=== PATIENT | male | born 1940 | race African-American/Black ===

== ENCOUNTER 2017-09-07 11:19 | Emergency (ER) | payer MEDICARE ==
[~2017-09-07] VITALS: Ht 185.4 cm; Wt 108.0 kg
[~2017-09-07 11:19] MED LIST: AMIODARONE400 MG PO; AMLODIPINE5 MG PO; AMOX/K CLAV875 M1 PO; AMOXICILLIN500 MG OR; AUGMENTIN500TAB PO; AUGMENTIN875TAB OR; CORTISPORIN OTI10 ML AD; DICLOFENAC SODI75 M1 PO; EC-NAPROSYN375 MG OR; EQ PAIN RELIEV500 MG PO; FLUARIX QUADRIV1 IN1 IM; HYDRALAZINE50 MG OR; HYDRALAZINE50 MG PO; K-DUR/KLOR-CON10 MEQ PO; KENALOG-4040 MG/ML IA; LASIX 40 MG TAB40 MG PO; LISINOPRIL10 MG OR; LISINOPRIL10 MG PO; MEDDOSEPAK PO; MELOXICAM15 MG PO; METOPROL TAR100 MG PO; METOPROLOL TART50 MG PO; METOPROLOL100 M1 OR; MILTAB #1 PO; MIRALAX3350 N1 PO; NABUMETONE500 MG; NABUMETONE500 MG PO; NITRO-DUR0.4 MG/HR TD; PLETAL100 MG PO; PLETAL50 MG PO; PNEUMOVAX 23 IM; PRAVASTATIN20 MG OR; PRAVASTATIN20 MG PO; ROCEPHIN 1 GM1 GM IM; RYBIX ODT50 MG PO; TENORMIN25 MG PO; TORADOL30 MG/VIAL IJ; TRAMADOL HCL50 MG PO; VERAPAMIL OR; VERAPAMIL PO; ZITHROMAX250 MG PO; ZYRTEC10 MG PO
[2017-09-07] MEDS ORDERED: HYDRALAZINE25 MG PO (11:36)
[2017-09-07] MEDS ORDERED: LISINOPRIL20 MG PO (11:36)
[2017-09-07] MEDS ORDERED: MAXZIDE-2537.5 MG/TA PO (11:37)
[2017-09-07 12:21] LABS: HEMATOCRIT 43.1 % (39.0-50.0); HEMOGLOBIN 14.1 g/dl (14.0-18.0); IMMATURE GRANULOCYTES 0.4 % (0.0-1.0); MEAN CELL VOLUME 94.5 fL CALC (80.0-100.0); MEAN CORPUSCULAR HGB 30.9 pG CALC (26.0-32.0); MEAN CORPUSCULAR HGB CONC 32.7 g/L CALC (32.0-36.0); NEUT# 5.73 thou/uL (1.82-7.42); RED BLOOD COUNT 4.56 mill/uL (4.70-6.10)
[2017-09-07 12:37] LABS: ALBUMIN 4.3 g/dL (3.2-5.0); ALKALINE PHOSPHATASE 56 u/l (38-126); ANION GAP 14 (6-22 (CALC)); BILIRUBIN, TOTAL 0.6 mg/dL (0.0-1.4); BUN 26 mg/dL (8-23); BUN/CREATININE RATIO 23 (12-20 (CALC)); CALCIUM 9.6 mg/dL (8.4-10.2); CARBON DIOXIDE 28 mmol/l (22-30); CHLORIDE 104 mmol/l (95-108); CREATININE 1.1 mg/dL (0.7-1.3); GFR > 60 ML/MIN (>=60 (CALC)); GFR FOR AFR.AMER. > 60 ML/MIN (>=60 (CALC)); GLUCOSE 104 mg/dL (82-115); POTASSIUM 4.9 mmol/l (3.5-5.1); SGOT/AST 19 u/l (19-48); SGPT/ALT 44 u/l (11-66); SODIUM 142 mmol/l (137-146); TOTAL PROTEIN 7.5 g/dL (6.3-8.2)
[2017-09-07] MEDS ORDERED: MEDDOSEPAK PO (15:25)
[2017-09-07 15:32] VITALS: BP 10/86
== END 2017-09-07 15:41 | disposition home or self-care (01) ==
LOC: ED 11:19
PROVIDERS: Emergency Medicine
DX: J40 Bronchitis, not specified as acute or chronic (principal); M46.92 Unspecified inflammatory spondylopathy, cervical region; R05 Cough; I10 Essential (primary) hypertension

== ENCOUNTER 2017-10-27 11:52 | Emergency (ER) | payer MEDICARE ==
[~2017-10-27] VITALS: Ht 185.4 cm; Wt 110.0 kg
[~2017-10-27 11:52] MED LIST changes: +HYDRALAZINE25 MG PO; +LISINOPRIL20 MG PO; +MAXZIDE-2537.5 MG/TA PO
[2017-10-27] MEDS ORDERED: TRAMADOL HYDROC50 MG PO (13:28)
[2017-10-27 13:42] LABS: URINE BILIRUBIN - DIPSTICK NEGATIVE (NEGATIVE); URINE BLOOD DIPSTICK NEGATIVE (NEGATIVE); URINE COLOR YELLOW; URINE GLUCOSE - DIPSTICK NEGATIVE (NEGATIVE); URINE KETONE NEGATIVE (NEGATIVE); URINE LEUK ESTERASE NEGATIVE (NEGATIVE); URINE NITRITE - DIPSTICK NEGATIVE (Negative); URINE PH 5.5 (4.5-8.0); URINE PROTEIN - DIPSTICK NEGATIVE (NEG-TRACE); URINE SPECIFIC GRAVITY 1.015; URINE UROBILINOGEN - DIPSTICK 0.2 E.U./dL (0.2)
[2017-10-27 13:43] LABS: HEMATOCRIT 35.2 % (39.0-50.0); HEMOGLOBIN 11.4 g/dl (14.0-18.0); IMMATURE GRANULOCYTES 0.3 % (0.0-1.0); MEAN CELL VOLUME 96.7 fL CALC (80.0-100.0); MEAN CORPUSCULAR HGB 31.3 pG CALC (26.0-32.0); MEAN CORPUSCULAR HGB CONC 32.4 g/L CALC (32.0-36.0); NEUT# 3.79 thou/uL (1.82-7.42); RED BLOOD COUNT 3.64 mill/uL (4.70-6.10); RED CELL DISTRI WIDTH 13.9 % (11.5-15.5)
[2017-10-27 14:00] LABS: URINE CLARITY CLEAR
[2017-10-27 14:02] LABS: ALBUMIN 4.5 g/dL (3.2-5.0); ALKALINE PHOSPHATASE 53 u/l (38-126); AMYLASE 107 u/l (30-110); ANION GAP 16 (6-22 (CALC)); BILIRUBIN, TOTAL 0.5 mg/dL (0.0-1.4); BUN 39 mg/dL (8-23); BUN/CREATININE RATIO 17 (12-20 (CALC)); CALCIUM 9.4 mg/dL (8.4-10.2); CARBON DIOXIDE 26 mmol/l (22-30); CHLORIDE 109 mmol/l (95-108); CREATININE 2.3 mg/dL (0.7-1.3); GFR 28 ML/MIN (>=60 (CALC)); GFR FOR AFR.AMER. 34 ML/MIN (>=60 (CALC)); GLUCOSE 112 mg/dL (82-115); LIPASE 92 u/l (23-300); POTASSIUM 4.9 mmol/l (3.5-5.1); SGOT/AST 22 u/l (19-48); SGPT/ALT 23 u/l (11-66); SODIUM 146 mmol/l (137-146); TOTAL PROTEIN 7.6 g/dL (6.3-8.2)
[2017-10-27 14:13] LABS: MYOGLOBIN 157 ng/mL (0 - 121)
[2017-10-27 14:46] VITALS: BP 130/63
== END 2017-10-27 15:05 | disposition home or self-care (01) ==
LOC: ED 11:52
PROVIDERS: Emergency Medicine
DX: R22.43 Localized swelling, mass and lump, lower limb, bilateral (principal); I10 Essential (primary) hypertension; Z86.73 Personal history of transient ischemic attack (TIA), and cerebral infarction without residual deficits; Z85.46 Personal history of malignant neoplasm of prostate; M19.90 Unspecified osteoarthritis, unspecified site; E78.00 Pure hypercholesterolemia, unspecified

== ENCOUNTER 2017-11-13 13:09 | Emergency (ER) | payer MEDICARE ==
[~2017-11-13] VITALS: Ht 185.4 cm; Wt 100.0 kg
[~2017-11-13 13:09] MED LIST changes: +TRAMADOL HYDROC50 MG PO
[2017-11-13] MEDS ORDERED: ARTHRITIS PAIN650 MG PO (13:49)
[2017-11-13] MEDS ORDERED: FINASTERIDE5 MG PO (13:50)
[2017-11-13] MEDS ORDERED: DUONEB IN (13:51)
[2017-11-13] MEDS ORDERED: MAXIDE1 COMBO PO (13:52)
[2017-11-13] MEDS ORDERED: TRAMADOL HCL50 MG PO (13:54)
[2017-11-13 13:57] LABS: HEMATOCRIT 32.2 % (39.0-50.0); HEMOGLOBIN 10.6 g/dl (14.0-18.0); IMMATURE GRANULOCYTES 0.5 % (0.0-1.0); MEAN CORPUSCULAR HGB 31.9 pG CALC (26.0-32.0); MEAN CORPUSCULAR HGB CONC 32.9 g/L CALC (32.0-36.0); NEUT# 7.35 thou/uL (1.82-7.42); RED BLOOD COUNT 3.32 mill/uL (4.70-6.10)
[2017-11-13 14:07] LABS: ALKALINE PHOSPHATASE 50 u/l (38-126); ANION GAP 17 (6-22 (CALC)); BILIRUBIN, TOTAL 0.4 mg/dL (0.0-1.4); BUN 33 mg/dL (8-23); BUN/CREATININE RATIO 26 (12-20 (CALC)); CALCIUM 9.8 mg/dL (8.4-10.2); CARBON DIOXIDE 23 mmol/l (22-30); CHLORIDE 109 mmol/l (95-108); CREATININE 1.3 mg/dL (0.7-1.3); GFR 54 ML/MIN (>=60 (CALC)); GFR FOR AFR.AMER. > 60 ML/MIN (>=60 (CALC)); GLUCOSE 98 mg/dL (82-115); MAGNESIUM 2.1 mg/dL (1.6-2.3); POTASSIUM 4.2 mmol/l (3.5-5.1); SGOT/AST 76 u/l (19-48); SGPT/ALT 45 u/l (11-66); SODIUM 144 mmol/l (137-146); TOTAL PROTEIN 6.9 g/dL (6.3-8.2)
[2017-11-13] MEDS ORDERED: POTASSIUM CHLO20 ME1 PO (15:56)
[2017-11-13] MEDS ORDERED: LASIX20 MG PO (15:56)
[2017-11-13 16:06] VITALS: BP 130/70
== END 2017-11-13 16:23 | disposition home or self-care (01) ==
LOC: ED 13:09
PROVIDERS: Emergency Medicine
DX: R60.0 Localized edema (principal); R06.02 Shortness of breath; R53.1 Weakness

== ENCOUNTER 2017-11-15 15:51 | Emergency (ER) | payer MEDICARE ==
[~2017-11-15] VITALS: Ht 185.4 cm; Wt 136.3 kg
[~2017-11-15 15:51] MED LIST changes: +ARTHRITIS PAIN650 MG PO; +DUONEB IN; +FINASTERIDE5 MG PO; +LASIX20 MG PO; +MAXIDE1 COMBO PO; +POTASSIUM CHLO20 ME1 PO
[2017-11-15 18:53] LABS: HEMATOCRIT 30.5 % (39.0-50.0); IMMATURE GRANULOCYTES 0.3 % (0.0-1.0); MEAN CELL VOLUME 96.5 fL CALC (80.0-100.0); MEAN CORPUSCULAR HGB 31.6 pG CALC (26.0-32.0); MEAN CORPUSCULAR HGB CONC 32.8 g/L CALC (32.0-36.0); NEUT# 8.49 thou/uL (1.82-7.42); RED BLOOD COUNT 3.16 mill/uL (4.70-6.10); RED CELL DISTRI WIDTH 13.8 % (11.5-15.5)
[2017-11-15 19:06] LABS: PROTHROMBIN TIME 10.8 SECONDS (9.0-12.5)
[2017-11-15 19:08] LABS: ALKALINE PHOSPHATASE 47 u/l (38-126); ANION GAP 19 (6-22 (CALC)); BILIRUBIN, TOTAL 0.6 mg/dL (0.0-1.4); BUN 41 mg/dL (8-23); BUN/CREATININE RATIO 32 (12-20 (CALC)); CALCIUM 9.7 mg/dL (8.4-10.2); CARBON DIOXIDE 19 mmol/l (22-30); CHLORIDE 107 mmol/l (95-108); CREATININE 1.3 mg/dL (0.7-1.3); GFR 54 ML/MIN (>=60 (CALC)); GFR FOR AFR.AMER. > 60 ML/MIN (>=60 (CALC)); GLUCOSE 106 mg/dL (82-115); POTASSIUM 4.7 mmol/l (3.5-5.1); SGOT/AST 98 u/l (19-48); SGPT/ALT 57 u/l (11-66); SODIUM 140 mmol/l (137-146); TOTAL PROTEIN 6.9 g/dL (6.3-8.2)
[2017-11-15 22:50] VITALS: BP 149/65
== END 2017-11-15 22:50 | disposition short-term general hospital (02) ==
LOC: ED 15:51
PROVIDERS: Emergency Medicine
DX: I70.203 Unspecified atherosclerosis of native arteries of extremities, bilateral legs (principal); M79.671 Pain in right foot; I10 Essential (primary) hypertension; R22.43 Localized swelling, mass and lump, lower limb, bilateral; Z86.73 Personal history of transient ischemic attack (TIA), and cerebral infarction without residual deficits